=== PATIENT | female | born 1970 | race African-American/Black ===

== ENCOUNTER 2017-11-03 16:10 | Emergency (ER) | payer OTHER, MEDICAID ==
[~2017-11-03] VITALS: Ht 162.6 cm; Wt 98.9 kg
--- NOTE | 2017-11-03 17:13 | Emergency Room Report ---
History of Present Illness General Chief Complaint: Flu Like Symptoms Source: Patient Present Illness HPI 47 YO Female presents to the ED c/o nasal congestion x 2 weeks with new onset throat pain and recurrent bloody nose x 3 days. pt. reports she has had consistent frontal sinus pressure PARKER x 2 wee. she rates her pain as 5/10 in severity. pt. reports purulent nasal drainage/rhinorrhea. pt. denies fevers or chill. Pt. describes bright red blood scant amount after blowing her nose. pt. reports hx moderate sinusitis and has ENT appointment in 2 weeks. Pt. reports She can not take PCN, her sister has severe allergy and because of that she will not take amoxicillin. Pt. denies swollen tender lymph nodes. Denies ear pain, high fevers, lethargy, neck pain/stiffness, irritability, photophobia dehydration, N/V/D. Denies Cp, Palpitations, LOC, AMS, seizures, paresthesias, or changes in Hearing or vision, no Sudden severe PARKER. Allergies: Coded Allergies: No Known Allergies (Unverified , 11/03/17) Patient History Past Medical History: see triage record Past Surgical History: none Pertinent Family History: none Last Menstrual Period: 10/12/19 Now: No : 5 Para: 3 Reviewed Nursing Documentation: PMH: Agreed, PSxH: Agreed Nursing Documentation-PMH Past Medical History: No Stated History Hx Hypertension: Yes Review of Systems All Other Systems: negative except mentioned in HPI Physical Exam Vital Signs Date Time Temp Pulse Resp B/P (MAP) Pulse Ox O2 Delivery O2 Flow Rate FiO2 11/03/17 16:20 98.1 90 18 128/80 100 Room Air 98.1 Sp02 EP Interpretation: reviewed, normal General Appearance: no apparent distress, alert, GCS 15, non-toxic Head: normocephalic, atraumatic Eyes: bilateral eye normal inspection, bilateral eye PERRL, bilateral eye EOMI ENT: hearing grossly normal, normal voice, TMs + canals normal, nasal congestion - bilaterally edematous turbinates. , pharyngeal erythema - postnasal drainage / cobblestone appearance, other - no septal hematoma, Frontal and maxillary sinus TTP and tenderness to percussion. swollen turbinates bilaterally. Neck: full range of motion, no meningismus, no bony tend Respiratory: chest non-tender, lungs clear, normal breath sounds, speaking full sentences Cardiovascular #1: regular rate, rhythm, no edema Musculoskeletal: back normal, gait/station normal, normal range of motion Neurologic: alert, oriented x3, responsive, motor strength/tone normal, sensory intact, speech normal, grossly normal Psychiatric: judgement/insight normal Skin: normal color, no rash, warm/dry, well hydrated Lymphatic: no adenopathy Medical Decision Making PA Attestation Dr. Santacruz is my supervising Physician whom patient management has been discussed with. Diagnostic Impression: Primary Impression: Bacterial sinusitis ER Course ! Sx LONGER THAN 10 DAYS, PT. reports Allergic to PCN/AMOX. ! 47 YO Female presents to the ED c/o nasal congestion x 2 weeks with new onset throat pain and recurrent bloody nose x 3 days. pt. reports she has had consistent frontal sinus pressure PARKER x 2 wee. she rates her pain as 5/10 in severity. pt. reports purulent nasal drainage/rhinorrhea. pt. denies fevers or chill. Pt. describes bright red blood scant amount after blowing her nose. pt. reports hx moderate sinusitis and has ENT appointment in 2 weeks. Pt. reports She can not take PCN, her sister has severe allergy and because of that she will not take amoxicillin. Pt. denies swollen tender lymph nodes. Denies ear pain, high fevers, lethargy, neck pain/stiffness, irritability, photophobia dehydration, N/V/D. Denies Cp, Palpitations, LOC, AMS, seizures, paresthesias, or changes in Hearing or vision, no Sudden severe PARKER. Ddx considered but are not limited to: pharyngitis, strep, [employer], ludwigs angina, URI , Rhizopus infection, sinusitis just to name a few. Vital signs: are WNL, pt. is afebrile H&PE are most consistent with: bacterial sinusitis, and epistaxis ORDERS: None required at this time as the diagnosis is clinical ED INTERVENTIONS: none required at this time. -D/w pt. that she needs to still follow up with her ENT specialist as may have an anatomical disposition for sinusitis etc. DISCHARGE: At this time pt. is stable for d/c to home. Will provide printed patient care instructions, and any necessary prescriptions. Care plan and follow up instructions have been discussed with the patient prior to discharge. Last Vital Signs Date Time Temp Pulse Resp B/P (MAP) Pulse Ox O2 Delivery O2 Flow Rate FiO2 11/03/17 16:20 98.1 90 18 128/80 100 Room Air 98.1 Disposition: HOME, SELF-CARE Condition: Stable Scripts Cetirizine Hcl/Pseudoephedrine (ZYRTEC-D TABLET) 1 Each Tab.er.12h 1 EACH ORAL DAILY, #20 TAB Prov: Kelsea Miranda 11/03/17 Sodium Chloride (Saline Nasal [place]) 30 Ml [place] 1 SPRAY NASAL THREE TIMES A DAY, #30 SPRAY Prov: Kelsea Miranda 11/03/17 Azithromycin* (ZITHROMAX*) 250 Mg Tablet 250 MG ORAL DAILY, #14 TAB 0 Refills Take two tables once daily for 1 day, then one tablet once daily for 4 days. Prov: Kelsea Miranda 11/03/17 Patient Instructions: Sinusitis, Adult, [id number] Additional Instructions: Take medications as directed. Follow up with a Primary Care Provider in 3-5 days, even if your symptoms have resolved. --Please review list of primary care clinics, if you do not already have a primary care provider Return sooner to ED if new symptoms occur, or current symptoms become worse. - Please note that this Emergency Department Report was dictated using [employer] tender technology software, occasionally this can lead to erroneous entry secondary to interpretation by the dictation equipment. Kelsea Miranda Nov 03, 2017 17:13
[2017-11-03] MEDS ORDERED: ZITHROMAX250 MG ORAL (17:19)
[2017-11-03] MEDS ORDERED: CLARITIN-D 241 EACH PO (17:19)
[2017-11-03] MEDS ORDERED: SALINE NASAL SP45 ML NASAL (17:19)
[2017-11-03] MEDS ORDERED: ZYRTEC-D TABLE1 EACH ORAL (17:27)
[2017-11-03 17:48] VITALS: BP 126/80
[2017-11-03 17:49] VITALS: BP 126/80
== END 2017-11-03 17:50 | disposition home or self-care (01) ==
LOC: EMR 17:46
DX: J32.9 Chronic sinusitis, unspecified (principal); B96.89 Other specified bacterial agents as the cause of diseases classified elsewhere; I10 Essential (primary) hypertension
CPT/HCPCS: 99284

== ENCOUNTER 2018-11-15 17:17 | Emergency (ER) | payer OTHER, MEDICAID ==
[~2018-11-15] VITALS: Ht 162.6 cm; Wt 99.8 kg
[~2018-11-15 17:17] MED LIST: CLARITIN-D 241 EACH PO; SALINE NASAL SP45 ML NASAL; ZITHROMAX250 MG ORAL; ZYRTEC-D TABLE1 EACH ORAL
[2018-11-15] MEDS ORDERED: LOSARTAN-HCTZ1 EAC2 ORAL (17:35)
[2018-11-15] MEDS ORDERED: AUGMENTIN 875-1 EAC1 ORAL (17:57)
[2018-11-15] MEDS ORDERED: PREDNISONE20 MG ORAL (17:57)
[2018-11-15 18:10] VITALS: BP 142/78
--- NOTE | 2018-11-15 18:10 | NUR ---
ER DISCHARGE NOTE: Patient is cleared to be discharged per ERMD, pt is aox4, on room air, with stable vital signs. pt was given dc and prescription instructions, pt was able to verbalize understanding, pt id band removed. pt is able to ambulate with steady gait. pt took all belongings.
--- NOTE | 2018-11-15 19:01 | Emergency Room Report ---
History of Present Illness General Chief Complaint: Upper Respiratory Illness Source: Patient Present Illness HPI 48-year-old female presents ED for evaluation. Complaining of sinus pressure, headache, congestion. Started one and a half weeks ago. Was seen by PMD and was prescribed Z-Santy. States she completed a prescription but symptoms did not resolve. States she has frequent history of sinus infections. Is also normally prescribed prednisone but not at this time. Denies fevers or chills. Pain is dull, 7 out of 10, nonradiating. Denies sore throat or earache. Denies cough. Denies sick contacts or recent travel. No other aggravating relieving factors. Denies any other associated symptoms Allergies: Coded Allergies: No Known Allergies (Unverified , 11/03/17) Patient History Past Medical History: HTN Past Surgical History: none Pertinent Family History: none Social History: Denies: smoking, alcohol use, drug use Last Menstrual Period: on period Now: No Immunizations: UTD Reviewed Nursing Documentation: PMH: Agreed; PSxH: Agreed Nursing Documentation-PMH Past Medical History: No History, Except For Hx Hypertension: Yes Review of Systems All Other Systems: negative except mentioned in HPI Physical Exam Vital Signs Date Time Temp Pulse Resp B/P (MAP) Pulse Ox O2 Delivery O2 Flow Rate FiO2 11/15/18 17:31 98.1 87 16 142/78 98 Room Air Sp02 EP Interpretation: reviewed, normal General Appearance: no apparent distress, alert, GCS 15, non-toxic Head: normocephalic Eyes: bilateral eye normal inspection, bilateral eye PERRL, bilateral eye EOMI ENT: hearing grossly normal, normal pharynx, no angioedema, normal voice, other - maxillarytenderness Neck: full range of motion, supple, no meningismus, supple/symm/no masses Respiratory: chest non-tender, lungs clear, normal breath sounds, speaking full sentences Cardiovascular #1: normal inspection Gastrointestinal: normal inspection Rectal: deferred Genitourinary: no CVA tenderness Musculoskeletal: normal inspection Neurologic: alert, oriented x3, responsive, motor strength/tone normal, sensory intact, speech normal Psychiatric: normal inspection Skin: normal inspection Lymphatic: normal inspection Medical Decision Making Diagnostic Impression: Primary Impression: Sinusitis Qualified Codes: J01.01 - Acute recurrent maxillary sinusitis ER Course Hospital Course 48-year-old F presents to ED complaining of nasal congestion, pain. h/o sinusitits Differential diagnoses include: URI, pharyngitis, otitis media, asthma Clinical course Patient placed on stretcher. After initial history, physical exam reveals a middle aged female in no acute distress. maxillary tenderness noted. Bilateral TM unremarkable. No pharyngeal erythema. No tonsillar exudates. No lymphadenopathy. lungs clear. abdomen soft. Clinical findings consistent with sinusitits. Given persistence of symptoms despite Z-Santy we will provide another course of antibiotics. I'll start Augmentin and prednisone. Safe for discharge with close outpatient follow-up. States she has a PMD Diagnosis - sinusitits Stable and discharged home with prescriptions for Prednisone, augmentin. Instructed to followup with PMD. Return to ED if symptoms recur or worsen Last Vital Signs Date Time Temp Pulse Resp B/P (MAP) Pulse Ox O2 Delivery O2 Flow Rate FiO2 11/15/18 18:10 98.1 87 16 142/78 98 Room Air Status: improved Disposition: HOME, SELF-CARE Condition: Stable Scripts Prednisone* (PREDNISONE*) 20 Mg Tablet 40 MG ORAL DAILY for 5 Days, TAB Prov: Silas Kim MD 11/15/18 Amoxicillin/Potassium Clav 875-125* (AUGMENTIN 875-125 TABLET*) 1 Each Tablet 1 TAB ORAL TWICE A DAY, #14 TAB Prov: Silas Kim MD 11/15/18 Referrals: [facility] Patient Instructions: Sinusitis, Adult, [id number] Silas Kim MD Nov 15, 2018 19:01
== END 2018-11-15 18:10 | disposition home or self-care (01) ==
LOC: EMR 18:00
DX: J01.01 Acute recurrent maxillary sinusitis (principal); I10 Essential (primary) hypertension
CPT/HCPCS: 99282